=== PATIENT | male | born 1995 | race Two or more races ===

== ENCOUNTER 2017-09-06 07:38 | Emergency (ER) | payer SELFPAY ==
[~2017-09-06] VITALS: Ht 170.2 cm; Wt 70.0 kg
[2017-09-06] MEDS ORDERED: ACETAMINOPHEN 325MG TABLET PO ONE (08:15)
[2017-09-06 08:35] VITALS: BP 132/85
== END 2017-09-06 09:50 | disposition home or self-care (01) ==
LOC: ER 07:43
DX: F31.9 Bipolar disorder, unspecified (principal); G89.29 Other chronic pain; F20.9 Schizophrenia, unspecified
CPT/HCPCS: 99284

== ENCOUNTER 2017-09-06 11:30 | Emergency (ER) | payer SELFPAY ==
[~2017-09-06] VITALS: Ht 170.2 cm; Wt 62.0 kg
[2017-09-06 11:33] VITALS: BP 110/68
== END 2017-09-06 18:03 | disposition home or self-care (01) ==
LOC: ER 11:44
DX: H54.7 Unspecified visual loss (principal); F20.9 Schizophrenia, unspecified; F31.9 Bipolar disorder, unspecified
CPT/HCPCS: 99283